=== PATIENT | female | born 1995 | race Caucasian/White ===

== ENCOUNTER → 2017-09-23 | Outpatient (CLI) | payer OTHER | LOC: BMCIMAGING 09:02 | PROVIDERS: ATTEND Emergency Medicine | DX: M25.511 Pain in right shoulder (principal) ==

== ENCOUNTER → 2018-02-23 | Outpatient (CLI) | payer OTHER | LOC: BMCIMAGING 09:19 | PROVIDERS: ATTEND Family Medicine | DX: M25.572 Pain in left ankle and joints of left foot (principal) ==